=== PATIENT | male | born 1955 | race Caucasian/White ===

== ENCOUNTER 2016-10-27 11:02 | Emergency (ER) | payer BC, OTHER ==
--- NOTE | 2016-10-27 11:37 | ER Document Report ---
ED Eye Complaint - General Mode of Arrival: Ambulatory Information source: Patient - HPI Onset: This morning Eye location: Right Injury: No Occurred at: Home Quality of pain: No pain Severity: Moderate Exposure: No: Alkaline chemical, Acidic chemical, Unknown chemical, Direct trauma, Projectile, Broken glass, Conjunctivitis, Welding arc, Tanning rogers, Other Contact lenses worn: No Associated symptoms: None <JERICHOGABRIELAYONATAN MINAYA - Last Filed: 10/27/16 20:03> <JUJU SANDRA - Last Filed: 10/27/16 21:36> - General Chief Complaint: Loss of Vision Stated Complaint: EYE PROBLEM - Related Data Allergies/Adverse Reactions: No Known Allergies Allergy (Verified 10/27/16 11:36) Past Medical History - General Information source: Patient - Social History Smoking Status: Never Smoker Chew tobacco use (# tins/day): No Frequency of alcohol use: None Drug Abuse: None Lives with: Family Family History: CVA - FATHER, AT ADVANCED AGE Patient has suicidal ideation: No Patient has homicidal ideation: No - Past Medical History Cardiac Medical History: Denies: Hx Atrial Fibrillation, Hx Coronary Artery Disease, Hx Hypercholesterolemia, Hx Hypertension Pulmonary Medical History: Reports: None EENT Medical History: Reports: None Neurological Medical History: Reports: None Endocrine Medical History: Reports: Hx Hypothyroidism Renal/ Medical History: Reports: None. Denies: Hx Peritoneal Dialysis Malignancy Medical History: Reports None GI Medical History: Reports: None Musculoskeltal Medical History: Reports None Psychiatric Medical History: Reports: None Past Surgical History: Reports: Hx Orthopedic Surgery - SPINE, x 2 <JERICHOGABRIELAREIYONATAN - Last Filed: 10/27/16 20:03> Review of Systems - Review of Systems Constitutional: No symptoms reported EENT: See HPI Cardiovascular: No symptoms reported Respiratory: No symptoms reported Gastrointestinal: No symptoms reported Genitourinary: No symptoms reported Musculoskeletal: No symptoms reported Skin: No symptoms reported Neurological/Psychological: No symptoms reported <MOHAMUDREIYONATAN - Last Filed: 10/27/16 20:03> Physical Exam - Vital signs Interpretation: Normal - General General appearance: Appears well, Alert In distress: None - HEENT Head: Normocephalic Eyes: Normal Conjunctiva: Normal Extraocular movements intact: Yes Pupils: PERRL Corrective lenses worn: Yes Anterior chamber: Normal Fundascopic: Normal Ears: Normal Nasal: Normal Mouth/Lips: Normal Mucous membranes: Normal Pharynx: Normal Neck: Normal. No: Carotid bruit - Respiratory Respiratory status: No respiratory distress Breath sounds: Normal - Cardiovascular Rhythm: Regular Heart sounds: Normal auscultation Murmur: No - Abdominal Inspection: Normal Bowel sounds: Normal - Back Back: Normal - Extremities General upper extremity: Normal inspection General lower extremity: Normal inspection - Neurological Neuro grossly intact: Yes Cognition: Normal Orientation: AAOx4 - Psychological Associated symptoms: Normal affect, Normal mood - Skin Skin Temperature: Warm Skin Moisture: Dry Skin Color: Normal Skin Turgor: Elastic <YONATAN OWENS - Last Filed: 10/27/16 20:03> Course - Laboratory Result Diagrams: 10/27/16 17:20 10/27/16 12:15 - Consults DR. BOWIE Time consulted: 15:10 <YONATAN OWENS - Last Filed: 10/27/16 20:03> - Laboratory Result Diagrams: 10/27/16 17:20 10/27/16 12:15 <JUJU SANDRA - Last Filed: 10/27/16 21:36> - Re-evaluation Re-evalutation: 10/27/16 21:36 Patient reviewed and stable awaiting transfer at this time (JUJU SANDRA) - Vital Signs Vital signs: Temp Pulse Resp BP Pulse Ox 98.4 F 85 23 H 116/80 98 10/27/16 21:28 10/27/16 11:14 10/27/16 21:25 10/27/16 21:25 10/27/16 21:25 - Laboratory Laboratory results interpreted by me: 10/27/16 10/27/16 10/27/16 12:15 12:15 17:20 Lymphocytes % 10.9 L APTT 36.3 H Glucose 111 H - Consults DR. BOWIE Reason for consultation: 10/27/16 20:05 ADVISES HEPARIN ANTICOAGULATION, DOPPLER STUDY OF RIGHT CAROTID ARTERY. 10/27/16 20:07 @1840, RESULTS OF DOPPLER DISCUSSED, PATIENT ACCEPTED FOR TRANSFER TO [facility]. ( YONATAN OWENS) Discharge <YONATAN OWENS - Last Filed: 10/27/16 20:03> <JUJU SANDRA - Last Filed: 10/27/16 21:36> - Discharge Clinical Impression: Transient visual loss of right eye Condition: Stable Disposition: [facility] Referrals: CRUZ SPAIN FNP [Primary Care Provider] - Follow up as needed
[2016-10-27 12:26] LABS: ABSOLUTE BASOPHILS # (AUTO) 0.1 10^3/uL (0.0-0.2); ABSOLUTE EOSINOPHILS # (AUTO) 0.2 10^3/uL (0.0-0.6); ABSOLUTE LYMPHOCYTES (AUTO) 1.1 10^3/uL (0.5-4.7); BASOPHILS % (AUTO) 1.1 % (0-2); EOSINOPHILS % (AUTO) 1.9 % (0-6); HEMATOCRIT 43.5 % (37.9-51.0); HEMOGLOBIN 14.7 g/dL (13.5-17.0); HGB HCT DIFFERENCE 0.6; LYMPHOCYTES % (AUTO) 10.9 % (13-45); MEAN CORPUSCULAR HGB CONC 33.7 g/dL (32.0-36.0); MEAN CORPUSCULAR VOLUME 89 fl (80-97); MONOCYTES % (AUTO) 9.2 % (3-13); RED BLOOD COUNT 4.88 10^6/uL (4.35-5.55); RED CELL DISTRIBUTION WIDTH 13.4 % (11.5-14.0); SEGMENTED NEUTROPHILS % (AUTO) 76.9 % (42-78); WHITE BLOOD COUNT 10.4 10^3/uL (4.0-10.5)
[2016-10-27 12:44] LABS: ALANINE AMINOTRANSFERASE 31 U/L (21-72); ALBUMIN 4.1 g/dL (3.5-5.0); ALKALINE PHOSPHATASE 57 U/L (38-126); ANION GAP 9 (5-19); ASPARTATE AMINO TRANSFERASE 22 U/L (17-59); BILIRUBIN,DIRECT 0.2 mg/dL (0.0-0.4); BILIRUBIN,TOTAL 0.6 mg/dL (0.2-1.3); BLOOD UREA NITROGEN 14 mg/dL (7-20); CALCIUM 8.9 mg/dL (8.4-10.2); CARBON DIOXIDE 29 mmol/L (22-30); CHLORIDE 102 mmol/L (98-107); GLUCOSE 111 mg/dL (75-110); POTASSIUM 4.3 mmol/L (3.6-5.0); SODIUM 140.1 mmol/L (137-145); TOTAL PROTEIN 7.2 g/dL (6.3-8.2)
[2016-10-27 13:06] LABS: ERYTHROCYTE SEDIMENTATION RATE 17 mm/hr (0-20)
[2016-10-27] MEDS ORDERED: ASPIRIN 81 MG TABLET, CHEWABLE PO ONE (14:44)
[2016-10-27] MEDS ORDERED: ACETAMINOPHEN 325 MG TABLET PO ONE (14:44)
--- NOTE | 2016-10-27 15:14 | EKG REPORT ---
SEVERITY:- ABNORMAL ECG - SINUS RHYTHM PROBABLE LEFT VENTRICULAR HYPERTROPHY : Confirmed by: Leslie Amin 27-Oct-2016 15:13:55
[2016-10-27] MEDS ORDERED: HEPARIN SOD (PORCINE) 1,000 UNIT/ML 10 ML VIAL IV PRN (15:35)
[2016-10-27] MEDS ORDERED: HEPARIN SOD (PORCINE) 1,000 UNIT/ML 10 ML VIAL IV ONE (15:35)
[2016-10-27] MEDS ORDERED: HEPARIN SODIUM,PORCINE/D5W 250 ML IV PRN (15:35)
[2016-10-27 17:31] LABS: ABSOLUTE BASOPHILS # (AUTO) 0.1 10^3/uL (0.0-0.2); ABSOLUTE EOSINOPHILS # (AUTO) 0.3 10^3/uL (0.0-0.6); ABSOLUTE LYMPHOCYTES (AUTO) 1.4 10^3/uL (0.5-4.7); ABSOLUTE MONOCYTES (AUTO) 0.8 10^3/uL (0.1-1.4); ABSOLUTE NEUT (AUTO) 6.4 10^3/uL (1.7-8.2); BASOPHILS % (AUTO) 0.8 % (0-2); EOSINOPHILS % (AUTO) 3.2 % (0-6); HEMATOCRIT 41.9 % (37.9-51.0); HEMOGLOBIN 13.9 g/dL (13.5-17.0); HGB HCT DIFFERENCE -0.2; LYMPHOCYTES % (AUTO) 15.3 % (13-45); MEAN CORPUSCULAR HEMOGLOBIN 29.4 pg (27.0-33.4); MEAN CORPUSCULAR HGB CONC 33.1 g/dL (32.0-36.0); MEAN CORPUSCULAR VOLUME 89 fl (80-97); MONOCYTES % (AUTO) 9.1 % (3-13); RED BLOOD COUNT 4.71 10^6/uL (4.35-5.55); SEGMENTED NEUTROPHILS % (AUTO) 71.6 % (42-78)
[2016-10-27 17:34] LABS: PROTHROMBIN TIME 12.9 SEC (11.4-15.4)
[2016-10-27 17:35] LABS: PARTIAL THROMBOPLASTIN TIME 36.3 SEC (23.5-35.8)
--- NOTE | 2016-10-27 18:52 | RADIOLOGY REPORT (SQ) ---
EXAM DESCRIPTION: CAROTID DOPPLER COMPLETED DATE/TIME: 10/27/2016 6:34 pm REASON FOR STUDY: TRANSIENT VISUAL LOSS O.D. COMPARISON: None. TECHNIQUE: Grayscale ultrasound, Doppler velocity and spectra, and color Doppler images acquired of the extra-cranial carotid and vertebral arteries. Images stored on PACS. LIMITATIONS: None. FINDINGS: RIGHT CAROTID CCA Velocities: Within normal limits. ICA Velocities Peak systolic 0.75 m/s. End diastolic 0.30 m/s. Proximal ICA/CCA peak systolic ratio 0.9. Mild plaque in the bulb and proximal ICA. LEFT CAROTID CCA Velocities: Within normal limits. ICA Velocities Peak systolic 0.74 m/s. End diastolic 0.29 m/s. Proximal ICA/CCA peak systolic ratio 0.9. Mild plaque in the bulb and proximal ICA. VERTEBRAL ARTERIES: Antegrade flow. Normal waveforms. SUBCLAVIAN ARTERIES: Not imaged. OTHER: No other significant finding. IMPRESSION: NO HEMODYNAMICALLY SIGNIFICANT STENOSIS. COMMENT: Quality ID #[id number]: Velocity criteria are extrapolated from the diameter data as defined by t he Society of Radiologists in Ultrasound Consensus Conference. Radiology 2003: 229; 340-346. TECHNICAL DOCUMENTATION: JOB ID: [id number] [employer]- All Rights Reserved
--- NOTE | 2016-10-27 20:59 | RADIOLOGY REPORT (SQ) ---
EXAM DESCRIPTION: MRI HEAD WITHOUT COMPLETED DATE/TIME: 10/27/2016 8:44 pm REASON FOR STUDY: TRANSIENT VISION LOSS O.D. COMPARISON: None. TECHNIQUE: Multiplanar imaging includes non-contrasted T1, T2, FLAIR, and Diffusion with ADC map seq uences. Images stored on PACS. LIMITATIONS: Motion. FINDINGS: ANATOMY: No anomalies. Normal vascular flow voids. Pituitary fossa normal. CSF SPACES: Normal in size and contour. No hemorrhage. CEREBRUM: A few high-signal intensity lesions scattered throughout the white matter on FLAIR imaging with distribution suggesting chronic micro-vascular ischemic change. Sulci and gyri normal in size a nd contour. No evidence of hemorrhage, mass or extraaxial fluid collection. POSTERIOR FOSSA: No signal alteration. No hemorrhage. No edema, masses or mass effect. Internal derrick tory canals, cerebello-pontine angles, mastoids normal. DIFFUSION: Negative for acute or sub-acute infarction. ORBITS: No masses. Globes normal. PARANASAL SINUSES: No fluid levels. OTHER: No other significant finding. IMPRESSION: No acute abnormality in the brain. TECHNICAL DOCUMENTATION: JOB ID: [id number] [employer]- All Rights Reserved
[2016-10-27 22:42] VITALS: BP 116/86
== END 2016-10-27 21:35 | disposition short-term general hospital (02) ==
LOC: ER 11:02
DX: H54.61 Unqualified visual loss, right eye, normal vision left eye (principal); Z82.3 Family history of stroke
CPT/HCPCS: 93005; 99285; 96365; 96366; 36415; 85025; 85652; 85610; 85730; 80053; 93880; 70551; 93010; J1644 ×2